=== PATIENT | female | born 1965 | race Two or more races ===

== ENCOUNTER 2023-12-30 13:15 | Inpatient (IN) | payer OTHER ==
[2023-12-30] VITALS (28 sets, daily range): BP systolic 85–143; BP diastolic 27–56; PULSE 92–114; RESP 11–35; TEMP 96.6–97.5; O2SAT 96–100
[~2023-12-30] VITALS: Ht 152.4 cm; Wt 69.3 kg
[2023-12-30] MEDS: ROCURONIUM 10MG/ML 10ML VIAL IV ONE ×2 (13:20→13:45)
[2023-12-30] MEDS: ETOMIDATE (2MG/ML) 20ML VIAL IV ONE ×2 (13:20→13:45)
[2023-12-30] MEDS: PROPOFOL 100 ML IV SCH (13:23)
[2023-12-30] MEDS: PROPOFOL 100 ML IV ONE (13:23)
[2023-12-30] MEDS: fentaNYL Drip 2500mCg/250mlNS 250 ML IV SCH (13:45)
[2023-12-30] MEDS: SODIUM CHLORIDE 0.9% 1,350 ML IV ONE (14:15)
[2023-12-30 14:44] LABS: Urine Bacteria None Seen /hpf (None Seen)
[2023-12-30 14:44] LABS: Hematocrit 54.5 % (36.0-46.0); Hemoglobin 16.6 g/dL (12.2-16.2); Mean Corpuscular Hemoglobin 29.5 pg (28.0-32.0); Mean Corpuscular Hgb Conc. 30.4 g/dL (32.0-36.0); Red Blood Cells 5.62 10^6/uL (4.0-5.20); Red Cell Distribution Width 14.8 % (11.8-14.3); White Blood Cell 25.9 10^3/uL (4.4-10.8)
[2023-12-30 14:54] LABS: INR 1.13 (0.9-1.15); Partial Thromboplastin Time 33.6 SEC (24.5-34.5); Prothrombin Time 11.9 sec (9.3-11.8)
[2023-12-30 14:58] LABS: Basophils % (manual) 0 (0.0-2.0); Blast Cells 0; Eosinophils % (manual) 0 (0-7); Metamyelocytes % 0; Myelocytes % 0; Promyelocytes % 0; Reactive Lymphocytes 0
[2023-12-30] MEDS: VANCOMYCIN 1GM/200ML 200 ML IV ONE ×2 (15:00→20:32)
[2023-12-30] MEDS: PIPERACILLIN-TAZO 4.5GM 100 ML IV ONE (15:00)
[2023-12-30 15:09] LABS: Amphetamine Screen, Urine Neg (NEGATIVE); Barbiturate Scree,Urine Neg (NEGATIVE); Benzodiazephine Screen, Urine Neg (NEGATIVE); Cannabinoid Screen, Urine Neg (NEGATIVE); Cocaine Screen, Urine Neg (NEGATIVE); Opiate Scree,Urine Neg (NEGATIVE); Phencyclidine Screen, Urine Neg (NEGATIVE)
[2023-12-30 15:15] LABS: Urine Blood 1+ /uL (Negative); Urine Clarity Clear (Clear); Urine Color Light-Yellow (Yellow); Urine Hyaline Cast FEW /lpf (0 - 2); Urine Mucus FEW (None Seen); Urine Protein, UAD 2+ (Negative); Urine Specific Gravity 1.018 (1.001-1.035); Urine Urobilinogen Normal (Negative); Urine WBC 3 /hpf (0 - 5); Urine pH 5.5 (5.0-9.0)
[2023-12-30 15:19] LABS: Base Excess -27.9 mmol/L (-2.0-2.0)
[2023-12-30] MEDS: MIDAZOLAM DRIP 50 mg/50mL 50 ML IV SCH (15:25)
[2023-12-30] MEDS ORDERED: LACTULOSE 10g/15ml SOLN 473ML PR ONE (15:45)
[2023-12-30 16:05] LABS: Lactic Acid w/Reflex 4.9 mmol/L (0.4-2.0)
[2023-12-30 16:13] LABS: Band Neutrophils % (manual) 6; Lymphocytes % (manual) 11 (10.0-50.0); Monocytes % (manual) 3 (0-12); Platelet Estimate Increased
[2023-12-30 16:41] LABS: Alanine Aminotransferase 43 U/L (7-40); Albumin 4.3 g/dL (3.2-4.8); Alkaline Phosphatase 156 U/L (46-116); Anion Gap 19.00001 (5-15); Aspartate Aminotransferase 58 U/L (13-40); Bilirubin, Total 0.4 mg/dL (0.2-1.0); Blood Urea Nitrogen 25 mg/dL (9-23); Calcium 9.3 mg/dL (8.7-10.4); Chloride 104 mmol/L (98-107); Potassium 5.1 mmol/L (3.5-5.1); Sodium 133 mmol/L (136-145); Total Protein 6.9 g/dL (5.7-8.2)
[2023-12-30] MEDS: LACTULOSE 20Gm/30ML SOLN NG ONE (16:45)
[2023-12-30 16:49] LABS: Carbon Dioxide < 10 mmol/L (20-30); Glucose 662 mg/dL (74-106)
[2023-12-30] MEDS: LIDOCAINE 1% (LOCAL ANESTH.) PF 5ml SDV ID ONE (17:00)
[2023-12-30 17:13] LABS: Salicylate < 3.0 mg/dL (2.8-20.0)
[2023-12-30] MEDS ORDERED: ONDANSETRON HCL 4 MG/2 ML VIAL IV PRN (17:30)
[2023-12-30] MEDS ORDERED: NITROGLYCERIN 0.4 MG SL TAB SL PRN (17:30)
[2023-12-30] MEDS ORDERED: MORPHINE SULFATE INJ 2 MG/ml SYRG IV PRN (17:30)
[2023-12-30] MEDS ORDERED: SODIUM CHLORIDE 0.9% 1,000 ML IV SCH (17:30)
[2023-12-30] MEDS ORDERED: VANCOMYCIN PER PHARMACY 0 MG IV SCH (18:00)
[2023-12-30] MEDS: SODIUM CHLOR 0.9% PF (SALINE LOCK) 10ML VIAL/SYR IV SCH (18:06)
[2023-12-30] MEDS: NOREPINEPHRINE 8 MG/250ML KIT 250 ML IV ONE (18:22)
[2023-12-30] MEDS: NOREPINEPHRINE 8 MG/250ML KIT 250 ML IV SCH (18:22)
[2023-12-30] MEDS ORDERED: VANCOMYCIN 750mg/150ml 150 ML IV ONE (18:30)
[2023-12-30 19:20] LABS: Magnesium 2.4 mg/dL (1.6-2.6)
[2023-12-30 19:22] LABS: Phosphorus 6.7 mg/dL (2.4-5.1)
[2023-12-30 19:26] LABS: Chloride 106 mmol/L (98-107); Potassium 4.1 mmol/L (3.5-5.1); Sodium 135 mmol/L (136-145)
[2023-12-30 19:27] LABS: Anion Gap 19.00001 (5-15); Calcium 9.4 mg/dL (8.7-10.4)
[2023-12-30 19:32] LABS: BUN/Creatinine Ratio 9.1 (10.0-20.0); Blood Urea Nitrogen 17 mg/dL (9-23)
[2023-12-30 19:42] LABS: Glucose 690 mg/dL (74-106)
[2023-12-30 19:43] LABS: Carbon Dioxide < 10 mmol/L (20-30)
[2023-12-30 19:50] LABS: Lipase 30 U/L (12-53)
[2023-12-30 19:51] LABS: Triglycerides 355 mg/dL (< 150)
[2023-12-30 19:52] LABS: Amylase 58 U/L (30-118); LDL Cholesterol 152 mg/dL (< 100)
[2023-12-30 19:53] LABS: Cholesterol 231 mg/dL (< 200); HDL Cholesterol 32 mg/dL (40-59)
[2023-12-30] MEDS: INSULIN LANTUS (GLARGINE) 1 /0.01ml (100units/ml) SC ONE (20:00)
[2023-12-30] MEDS: ACCU-CHEK COMFORT CURVE STRIP VI SCH (20:00)
[2023-12-30] MEDS: SODIUM BICARB 8.4% 50Meq/50ml SYR Vial IV ONE (20:00)
[2023-12-30] MEDS: INSULIN DRIP 100 UNIT/100ML 100 ML IV SCH ×2 (20:06→23:08)
[2023-12-30] MEDS: SODIUM BICARB 50mEq/50ml Vial 100 ML in D5W 5% 1,000 ML IV ONE (20:59)
[2023-12-30] MEDS: CEFEPIME 2GM/50ML NS 50 ML IV SCH (22:35)
[2023-12-30 23:53] LABS: Chloride 104 mmol/L (98-107); Potassium 4.2 mmol/L (3.5-5.1); Sodium 134 mmol/L (136-145)
[2023-12-30 23:54] LABS: Anion Gap 20.00001 (5-15)
[2023-12-30 23:55] LABS: Calcium 8.7 mg/dL (8.7-10.4)
[2023-12-31] VITALS (105 sets, daily range): BP systolic 85–139; BP diastolic 40–71; PULSE 69–98; RESP 13–30; TEMP 97.9–99.1; O2SAT 95–100
[2023-12-31] LABS: BUN/Creatinine Ratio 11.5 (10.0-20.0); Blood Urea Nitrogen 26 mg/dL (9-23)
[2023-12-31 00:03] LABS: Carbon Dioxide < 10 mmol/L (20-30); Glucose 594 mg/dL (74-106)
[2023-12-31] MEDS: INSULIN DRIP 100 UNIT/100ML 100 ML IV SCH (03:40)
[2023-12-31 04:13] LABS: Basophils # (auto) 0.1 10 ^3/uL (0-0.2); Basophils % (auto) 0.6 % (0.0-2.0); Eosinophils # (auto) 0.1 10 ^3/uL (0-0.8); Eosinophils % (auto) 0.4 % (0.0-7.0); Hematocrit 43.7 % (36.0-46.0); Hemoglobin 14.6 g/dL (12.2-16.2); Lymphocytes # (auto) 2.3 10 ^3/uL (0.4-5.4); Lymphocytes % (auto) 12.5 % (10.0-50.0); Mean Corpuscular Hemoglobin 30.3 pg (28.0-32.0); Mean Corpuscular Hgb Conc. 33.3 g/dL (32.0-36.0); Mean Corpuscular Volume 90.8 fL (80.0-100.0); Monocytes % (auto) 5.5 % (0.0-12.0); Neutrophils # (auto) 14.9 10 ^3/uL (1.6-8.6); Nucleated Red Blood Cells % 0.2 %; Red Blood Cells 4.81 10^6/uL (4.0-5.20); Red Cell Distribution Width 13.7 % (11.8-14.3); White Blood Cell 18.4 10^3/uL (4.4-10.8)
[2023-12-31 04:20] LABS: Base Excess -18.1 mmol/L (-2.0-2.0)
[2023-12-31 04:49] LABS: Albumin 3.7 g/dL (3.2-4.8); Alkaline Phosphatase 115 U/L (46-116); Anion Gap 19.00001 (5-15); Aspartate Aminotransferase 38 U/L (13-40); Bilirubin, Total 0.2 mg/dL (0.2-1.0); Calcium 8.4 mg/dL (8.5-10.1); Chloride 106 mmol/L (98-107); Glucose 384 mg/dL (74-106); Sodium 135 mmol/L (136-145); Total Protein 6.2 g/dL (5.7-8.2)
[2023-12-31 05:02] LABS: Alanine Aminotransferase 32 U/L (7-40); BUN/Creatinine Ratio 9.9 (10.0-20.0); Blood Urea Nitrogen 25 mg/dL (9-23); Potassium 3.6 mmol/L (3.5-5.1)
[2023-12-31 05:05] LABS: Carbon Dioxide < 10 mmol/L (20-30)
[2023-12-31] MEDS: SODIUM BICARB 8.4% 50Meq/50ml SYR Vial IV ONE (05:21)
[2023-12-31 07:31] LABS: Base Excess -12.5 mmol/L (-2.0-2.0)
[2023-12-31] MEDS ORDERED: SODIUM BICARB 50mEq/50ml Vial 150 ML in D5W 5% 1,000 ML IV SCH (09:00)
[2023-12-31] MEDS: ENOXAPARIN SOD 40 MG/0.4 ML SYRINGE SC SCH (10:59)
[2023-12-31] MEDS: PANTOPRAZOLE 40 MG/10 ML VIAL INJ IV SCH (10:59)
[2023-12-31 11:14] LABS: Anion Gap 14 (5-15); Carbon Dioxide 16 mmol/L (20-30); Chloride 105 mmol/L (98-107); Potassium 2.6 mmol/L (3.5-5.1); Sodium 135 mmol/L (136-145)
[2023-12-31 11:15] LABS: Calcium 8.9 mg/dL (8.5-10.1)
[2023-12-31] MEDS: INSULIN LANTUS (GLARGINE) 1 /0.01ml (100units/ml) SC SCH (11:17)
[2023-12-31 11:20] LABS: Blood Urea Nitrogen 29 mg/dL (9-23); Glucose 205 mg/dL (74-106)
[2023-12-31] MEDS: SODIUM BICARB 50mEq/50ml Vial 150 ML in SOD CHL 0.45% 1,000 ML IV SCH (11:21)
[2023-12-31] MEDS: POTASSIUM CHL 20MEQ/100ML 100 ML IV SCH (14:26)
[2023-12-31 14:58] LABS: Chloride 107 mmol/L (98-107); Sodium 135 mmol/L (136-145)
[2023-12-31 14:59] LABS: Anion Gap 16 (5-15); Calcium 8.9 mg/dL (8.7-10.4); Carbon Dioxide 12 mmol/L (20-30)
[2023-12-31 15:04] LABS: Glucose 257 mg/dL (74-106)
[2023-12-31 15:08] LABS: BUN/Creatinine Ratio 7.7 (10.0-20.0); Blood Urea Nitrogen 22 mg/dL (9-23); Potassium 3.7 mmol/L (3.5-5.1)
[2023-12-31] MEDS: SODIUM CHLORIDE 0.9% 1,000 ML IV SCH (16:45)
[2023-12-31 18:37] LABS: Chloride 107 mmol/L (98-107); Potassium 3.2 mmol/L (3.5-5.1); Sodium 137 mmol/L (136-145)
[2023-12-31 18:38] LABS: Anion Gap 17 (5-15); Carbon Dioxide 13 mmol/L (20-30)
[2023-12-31 18:43] LABS: BUN/Creatinine Ratio 7.6 (10.0-20.0); Blood Urea Nitrogen 23 mg/dL (9-23); Glucose 160 mg/dL (74-106)
[2023-12-31 23:40] LABS: Chloride 110 mmol/L (98-107); Sodium 140 mmol/L (136-145)
[2023-12-31 23:43] LABS: Anion Gap 15 (5-15); Calcium 8.8 mg/dL (8.5-10.1); Carbon Dioxide 15 mmol/L (20-30)
[2023-12-31 23:48] LABS: Glucose 125 mg/dL (74-106)
[2024-01-01] VITALS (108 sets, daily range): BP systolic 106–143; BP diastolic 53–76; PULSE 71–91; RESP 15–29; TEMP 97.2–98.4; O2SAT 92–100
[2024-01-01] MEDS: INSULIN DRIP 100 UNIT/100ML 100 ML IV SCH ×2 (00:15→01:45)
[2024-01-01 00:38] LABS: BUN/Creatinine Ratio 9.9 (10.0-20.0); Blood Urea Nitrogen 32 mg/dL (9-23)
[2024-01-01 00:39] LABS: Potassium 3.6 mmol/L (3.5-5.1)
[2024-01-01 02:58] LABS: Chloride 112 mmol/L (98-107); Sodium 138 mmol/L (136-145)
[2024-01-01 02:59] LABS: Anion Gap 13 (5-15); Carbon Dioxide 13 mmol/L (20-30)
[2024-01-01 03:00] LABS: Calcium 8.5 mg/dL (8.7-10.4)
[2024-01-01 03:04] LABS: Blood Urea Nitrogen 38 mg/dL (9-23); Glucose 71 mg/dL (74-106)
[2024-01-01] MEDS: DEXTROSE (50%) 50ML SYRG IV PRN (04:56)
[2024-01-01] MEDS: POTASSIUM CHL 20MEQ/100ML 100 ML IV ONE (04:57)
[2024-01-01 07:06] LABS: Basophils # (auto) 0.2 10 ^3/uL (0-0.2); Eosinophils # (auto) 0 10 ^3/uL (0-0.8); Eosinophils % (auto) 0.3 % (0.0-7.0); Hematocrit 36.7 % (36.0-46.0); Hemoglobin 12.2 g/dL (12.2-16.2); Lymphocytes # (auto) 2.3 10 ^3/uL (0.4-5.4); Lymphocytes % (auto) 13.9 % (10.0-50.0); Mean Corpuscular Hemoglobin 29.4 pg (28.0-32.0); Mean Corpuscular Hgb Conc. 33.3 g/dL (32.0-36.0); Mean Corpuscular Volume 88.3 fL (80.0-100.0); Monocytes # (auto) 1.1 10 ^3/uL (0-1.3); Monocytes % (auto) 6.9 % (0.0-12.0); Neutrophils # (auto) 12.7 10 ^3/uL (1.6-8.6); Neutrophils % (auto) 77.9 % (37.0-80.0); Nucleated Red Blood Cells % 0.1 %; Red Blood Cells 4.16 10^6/uL (4.0-5.20); White Blood Cell 16.3 10^3/uL (4.4-10.8)
[2024-01-01 07:13] LABS: Base Excess -14.5 mmol/L (-2.0-2.0)
[2024-01-01 07:21] LABS: Chloride 112 mmol/L (98-107); Potassium 3.8 mmol/L (3.5-5.1); Sodium 138 mmol/L (136-145)
[2024-01-01 07:22] LABS: Anion Gap 12 (5-15); Calcium 8.2 mg/dL (8.7-10.4); Carbon Dioxide 14 mmol/L (20-30)
[2024-01-01 07:27] LABS: BUN/Creatinine Ratio 11.1 (10.0-20.0); Blood Urea Nitrogen 44 mg/dL (9-23); Glucose 148 mg/dL (74-106)
[2024-01-01 09:17] LABS: Urine Amorphous Crystal FEW /hpf (None Seen); Urine Bacteria FEW /hpf (None Seen); Urine Blood 2+ /uL (Negative); Urine Budding Yeast LOADED /hpf (None Seen); Urine Clarity Turbid (Clear); Urine Protein, UAD 2+ (Negative); Urine Urobilinogen Normal (Negative); Urine WBC 28 /hpf (0 - 5)
[2024-01-01 09:21] LABS: Urine Color STRAW (Yellow)
[2024-01-01 09:28] LABS: Creatinine, Urine 34.69 mg/dL (30.0-125.0)
[2024-01-01] MEDS ORDERED: DEXTROSE (50%) 50ML SYRG IV PRN (10:00)
[2024-01-01] MEDS: INSULIN LANTUS (GLARGINE) 1 /0.01ml (100units/ml) SC ONE (10:40)
[2024-01-01] MEDS: SODIUM BICARB 8.4% 50Meq/50ml SYR Vial IV ONE (10:48)
[2024-01-01] MEDS: InsuLIN REG 1unit/0.01ml Soln (100units/ml) SC SCH (12:00)
[2024-01-01 12:13] LABS: Chloride 112 mmol/L (98-107); Potassium 3.4 mmol/L (3.5-5.1); Sodium 141 mmol/L (136-145)
[2024-01-01] MEDS: ALBUTEROL SULF 2.5 MG/0.5ML(0.5%) NEB SOLN NEB SCH (12:13)
[2024-01-01 12:14] LABS: Anion Gap 12 (5-15); Calcium 8.2 mg/dL (8.5-10.1); Carbon Dioxide 17 mmol/L (20-30)
[2024-01-01 12:19] LABS: BUN/Creatinine Ratio 10.2 (10.0-20.0); Blood Urea Nitrogen 39 mg/dL (9-23); Glucose 92 mg/dL (74-106)
[2024-01-01] MEDS: ACCU-CHEK COMFORT CURVE STRIP VI SCH (12:24)
[2024-01-01] MEDS ORDERED: ALBUTEROL SULF 2.5 MG/0.5ML(0.5%) NEB SOLN NEB SCH (14:00)
[2024-01-01 14:45] LABS: Chloride 112 mmol/L (98-107); Potassium 3.1 mmol/L (3.5-5.1); Sodium 142 mmol/L (136-145)
[2024-01-01 14:46] LABS: Anion Gap 14 (5-15); Calcium 8.5 mg/dL (8.5-10.1); Carbon Dioxide 16 mmol/L (20-30)
[2024-01-01 14:51] LABS: BUN/Creatinine Ratio 10.5 (10.0-20.0); Blood Urea Nitrogen 41 mg/dL (9-23); Glucose 112 mg/dL (74-106)
[2024-01-01] MEDS: BUMETANIDE 2.5mg/10ml (0.25 mg/ml) INJ IV ONE (16:35)
[2024-01-01 18:53] LABS: Chloride 114 mmol/L (98-107); Sodium 140 mmol/L (136-145)
[2024-01-01 18:54] LABS: Anion Gap 15 (5-15); Calcium 7.9 mg/dL (8.5-10.1); Carbon Dioxide 11 mmol/L (20-30)
[2024-01-01 18:59] LABS: Glucose 154 mg/dL (74-106)
[2024-01-01 19:05] LABS: BUN/Creatinine Ratio 7.8 (10.0-20.0); Blood Urea Nitrogen 33 mg/dL (9-23); Potassium 3.8 mmol/L (3.5-5.1)
[2024-01-01 22:32] LABS: Chloride 115 mmol/L (98-107); Potassium 2.9 mmol/L (3.5-5.1); Sodium 142 mmol/L (136-145)
[2024-01-01 22:33] LABS: Anion Gap 13 (5-15); Calcium 7.7 mg/dL (8.5-10.1); Carbon Dioxide 14 mmol/L (20-30)
[2024-01-01 22:38] LABS: BUN/Creatinine Ratio 10.4 (10.0-20.0); Glucose 152 mg/dL (74-106)
[2024-01-01 22:40] LABS: Blood Urea Nitrogen 44 mg/dL (9-23)
[2024-01-02] VITALS (113 sets, daily range): BP systolic 96–139; BP diastolic 49–73; PULSE 66–94; RESP 12–30; TEMP 96.3–99; O2SAT 97–100
[2024-01-02] MEDS: POTASSIUM CHL 20MEQ/100ML 100 ML IV ONE ×3 (00:02→10:36)
[2024-01-02 03:31] LABS: Basophils # (auto) 0.1 10 ^3/uL (0-0.2); Basophils % (auto) 0.6 % (0.0-2.0); Eosinophils # (auto) 0 10 ^3/uL (0-0.8); Eosinophils % (auto) 0.4 % (0.0-7.0); Hematocrit 30.8 % (36.0-46.0); Hemoglobin 10.8 g/dL (12.2-16.2); Lymphocytes # (auto) 1.5 10 ^3/uL (0.4-5.4); Lymphocytes % (auto) 16.3 % (10.0-50.0); Mean Corpuscular Hemoglobin 30.5 pg (28.0-32.0); Mean Corpuscular Volume 87.3 fL (80.0-100.0); Monocytes # (auto) 0.7 10 ^3/uL (0-1.3); Monocytes % (auto) 7.5 % (0.0-12.0); Neutrophils # (auto) 7.1 10 ^3/uL (1.6-8.6); Neutrophils % (auto) 75.2 % (37.0-80.0); Red Blood Cells 3.53 10^6/uL (4.0-5.20); Red Cell Distribution Width 14.1 % (11.8-14.3); White Blood Cell 9.4 10^3/uL (4.4-10.8)
[2024-01-02 03:58] LABS: Chloride 114 mmol/L (98-107); Potassium 3.1 mmol/L (3.5-5.1); Sodium 140 mmol/L (136-145)
[2024-01-02 03:59] LABS: Anion Gap 12 (5-15); Calcium 7.8 mg/dL (8.7-10.4); Carbon Dioxide 14 mmol/L (20-30)
[2024-01-02 04:04] LABS: BUN/Creatinine Ratio 9.2 (10.0-20.0); Blood Urea Nitrogen 43 mg/dL (9-23); Glucose 176 mg/dL (74-106)
[2024-01-02 07:05] LABS: Base Excess -14.7 mmol/L (-2.0-2.0)
[2024-01-02] MEDS: FUROSEMIDE 40 MG/4 ML VIAL IV ONE (07:28)
[2024-01-02 10:15] LABS: Hepatitis B Core Total AB Negative (Negative)
[2024-01-02] MEDS: SODIUM CHLORIDE 0.9% 1,000 ML IV SCH (10:20)
[2024-01-02] MEDS: SODIUM BICARB 8.4% 50Meq/50ml SYR Vial IV ONE (10:36)
[2024-01-02 10:46] LABS: Hepatitis A Total Antibody Negative (Negative); Hepatitis B Surface Antibody Negative (Negative); Hepatitis B Surface Antigen Negative (Negative); Hepatitis C Antibody Negative (Negative)
[2024-01-02 17:27] LABS: Chloride 118 mmol/L (98-107); Potassium 3.1 mmol/L (3.5-5.1)
[2024-01-02 17:28] LABS: Anion Gap 13 (5-15); Calcium 7.7 mg/dL (8.5-10.1); Carbon Dioxide 15 mmol/L (20-30)
[2024-01-02 17:33] LABS: BUN/Creatinine Ratio 8.9 (10.0-20.0); Blood Urea Nitrogen 44 mg/dL (9-23); Glucose 182 mg/dL (74-106)
[2024-01-02 17:57] LABS: Sodium 146 mmol/L (136-145)
[2024-01-02] MEDS: MAGNESIUM SULFATE 1GM/100ML 100 ML IV SCH (18:16)
[2024-01-03] VITALS (107 sets, daily range): BP systolic 120–152; BP diastolic 52–77; PULSE 70–103; RESP 10–34; TEMP 97.6–98.6; O2SAT 94–100
[2024-01-03 04:08] LABS: Basophils # (auto) 0 10 ^3/uL (0-0.2); Basophils % (auto) 0.5 % (0.0-2.0); Eosinophils # (auto) 0.1 10 ^3/uL (0-0.8); Eosinophils % (auto) 1.5 % (0.0-7.0); Hematocrit 27.9 % (36.0-46.0); Hemoglobin 9.4 g/dL (12.2-16.2); Lymphocytes # (auto) 0.8 10 ^3/uL (0.4-5.4); Mean Corpuscular Hemoglobin 29.8 pg (28.0-32.0); Mean Corpuscular Hgb Conc. 33.8 g/dL (32.0-36.0); Mean Corpuscular Volume 88.3 fL (80.0-100.0); Monocytes # (auto) 0.5 10 ^3/uL (0-1.3); Monocytes % (auto) 7.6 % (0.0-12.0); Neutrophils # (auto) 5.5 10 ^3/uL (1.6-8.6); Neutrophils % (auto) 78.4 % (37.0-80.0); Red Blood Cells 3.16 10^6/uL (4.0-5.20)
[2024-01-03 04:20] LABS: Chloride 119 mmol/L (98-107); Potassium 2.7 mmol/L (3.5-5.1); Sodium 146 mmol/L (136-145)
[2024-01-03 04:21] LABS: Anion Gap 15 (5-15); Carbon Dioxide 12 mmol/L (20-30)
[2024-01-03 04:22] LABS: Calcium 7.1 mg/dL (8.7-10.4)
[2024-01-03 04:26] LABS: BUN/Creatinine Ratio 8.8 (10.0-20.0); Blood Urea Nitrogen 43 mg/dL (9-23); Glucose 174 mg/dL (74-106)
[2024-01-03] MEDS ORDERED: POTASSIUM CHL 20MEQ/100ML 100 ML IV ONE (05:30)
[2024-01-03] MEDS ORDERED: POTASSIUM CHLORIDE 40 MEQ, LIDOCAINE 1% (LOCAL ANESTH.) 4 ML in SODIUM CHL 0.9% 250 ML IV ONE (05:30)
[2024-01-03] MEDS: POTASSIUM CHL 20MEQ/100ML 100 ML IV SCH ×2 (05:51→09:15)
[2024-01-03 07:29] LABS: Base Excess -13.1 mmol/L (-2.0-2.0)
[2024-01-03] MEDS: SODIUM BICARB 8.4% 50Meq/50ml SYR Vial IV ONE (08:55)
[2024-01-03] MEDS: MAGNESIUM SULFATE 1GM/100ML 100 ML IV SCH (10:00)
[2024-01-03] MEDS: SOD CHL 0.45% 1,000 ML IV SCH (13:23)
[2024-01-03] MEDS: FUROSEMIDE 100 MG/10ML VIAL IV ONE (13:23)
[2024-01-03] MEDS: FUROSEMIDE INJECTION 10 ML ONE (13:24)
[2024-01-03] MEDS: MIDAZOLAM HCL 5 MG/ML-1ML VIAL ONE (15:16)
[2024-01-03] MEDS: MIDAZOLAM HCL 5 MG/ML-1ML VIAL IV ONE (16:00)
[2024-01-03 16:31] LABS: Chloride 115 mmol/L (98-107); Potassium 3.2 mmol/L (3.5-5.1); Sodium 141 mmol/L (136-145)
[2024-01-03 16:32] LABS: Anion Gap 14 (5-15); Calcium 7.4 mg/dL (8.7-10.4); Carbon Dioxide 12 mmol/L (20-30)
[2024-01-03 16:37] LABS: BUN/Creatinine Ratio 8.3 (10.0-20.0); Blood Urea Nitrogen 43 mg/dL (9-23); Glucose 176 mg/dL (74-106)
[2024-01-03] MEDS: POTASSIUM CHL 20MEQ/100ML 100 ML IV ONE (17:08)
[2024-01-04] VITALS (105 sets, daily range): BP systolic 115–157; BP diastolic 60–82; PULSE 66–89; RESP 8–31; TEMP 98–98.3; O2SAT 96–100
[2024-01-04 04:44] LABS: Basophils # (auto) 0 10 ^3/uL (0-0.2); Basophils % (auto) 0.6 % (0.0-2.0); Eosinophils # (auto) 0.2 10 ^3/uL (0-0.8); Eosinophils % (auto) 2.7 % (0.0-7.0); Hematocrit 30.6 % (36.0-46.0); Hemoglobin 10.4 g/dL (12.2-16.2); Lymphocytes # (auto) 0.9 10 ^3/uL (0.4-5.4); Lymphocytes % (auto) 11.3 % (10.0-50.0); Mean Corpuscular Hemoglobin 30.4 pg (28.0-32.0); Mean Corpuscular Hgb Conc. 34.1 g/dL (32.0-36.0); Monocytes # (auto) 0.7 10 ^3/uL (0-1.3); Monocytes % (auto) 8.7 % (0.0-12.0); Neutrophils # (auto) 6.5 10 ^3/uL (1.6-8.6); Neutrophils % (auto) 76.7 % (37.0-80.0); Nucleated Red Blood Cells % 0.1 %; Red Blood Cells 3.44 10^6/uL (4.0-5.20); Red Cell Distribution Width 14.4 % (11.8-14.3); White Blood Cell 8.4 10^3/uL (4.4-10.8)
[2024-01-04 04:47] LABS: Chloride 118 mmol/L (98-107); Potassium 3.8 mmol/L (3.5-5.1); Sodium 144 mmol/L (136-145)
[2024-01-04 04:48] LABS: Anion Gap 14 (5-15); Calcium 8.1 mg/dL (8.5-10.1); Carbon Dioxide 12 mmol/L (20-30)
[2024-01-04 04:53] LABS: BUN/Creatinine Ratio 9.2 (10.0-20.0); Glucose 176 mg/dL (74-106)
[2024-01-04 04:55] LABS: % Iron Saturation 27.4 % (15-50)
[2024-01-04 04:58] LABS: Blood Urea Nitrogen 53 mg/dL (9-23)
[2024-01-04 06:56] LABS: Base Excess -12.6 mmol/L (-2.0-2.0)
[2024-01-04] MEDS: SODIUM CHL 0.9% 1000 ML BAG XX ONE (07:00)
[2024-01-04] MEDS: EPOETIN ALFA-EPBX 10,000 UNIT/1ML VIAL SC ONE (21:35)
[2024-01-05] VITALS (120 sets, daily range): BP systolic 83–157; BP diastolic 44–97; PULSE 43–91; RESP 8–36; TEMP 97.3–98.9; O2SAT 60–100
[2024-01-05 04:08] LABS: Basophils # (auto) 0 10 ^3/uL (0-0.2); Basophils % (auto) 0.4 % (0.0-2.0); Eosinophils # (auto) 0.4 10 ^3/uL (0-0.8); Eosinophils % (auto) 3.3 % (0.0-7.0); Hematocrit 30.9 % (36.0-46.0); Hemoglobin 10.4 g/dL (12.2-16.2); Lymphocytes # (auto) 1.3 10 ^3/uL (0.4-5.4); Lymphocytes % (auto) 12.2 % (10.0-50.0); Mean Corpuscular Hemoglobin 29.7 pg (28.0-32.0); Mean Corpuscular Hgb Conc. 33.7 g/dL (32.0-36.0); Monocytes # (auto) 1.3 10 ^3/uL (0-1.3); Neutrophils # (auto) 7.9 10 ^3/uL (1.6-8.6); Neutrophils % (auto) 72.1 % (37.0-80.0); Red Blood Cells 3.52 10^6/uL (4.0-5.20); Red Cell Distribution Width 14.4 % (11.8-14.3)
[2024-01-05 04:24] LABS: Anion Gap 15 (5-15); Carbon Dioxide 15 mmol/L (20-30); Chloride 113 mmol/L (98-107); Potassium 3.5 mmol/L (3.5-5.1); Sodium 143 mmol/L (136-145)
[2024-01-05 04:25] LABS: Calcium 8.5 mg/dL (8.7-10.4)
[2024-01-05 04:30] LABS: BUN/Creatinine Ratio 9.1 (10.0-20.0); Blood Urea Nitrogen 48 mg/dL (9-23); Glucose 157 mg/dL (74-106)
[2024-01-05] MEDS: SODIUM CHL 0.9% 1000 ML BAG XX ONE (07:00)
[2024-01-05 07:29] LABS: Base Excess -9.4 mmol/L (-2.0-2.0)
[2024-01-05] MEDS: methylPREDNISolone SOD SUCC 125 MG/2 ML VL IV ONE (09:10)
[2024-01-05 09:38] LABS: Base Excess -3.3 mmol/L (-2.0-2.0)
[2024-01-05 09:48] LABS: Hepatitis B Surface Antigen Negative (Negative)
[2024-01-05] MEDS: methylPREDNISolone SOD SUCC 40 MG/ML VL IV SCH (10:00)
[2024-01-05 10:10] LABS: Hepatitis A Ab IgM Negative; Hepatitis B Core IgM Negative
[2024-01-05 10:11] LABS: Hepatitis C Antibody Negative (Negative)
[2024-01-05] MEDS: ALBUTEROL SULF 2.5 MG/0.5ML(0.5%) NEB SOLN HHN SCH (13:27)
[2024-01-05] MEDS: ALBUMIN 25% 100 ML IV ONE (15:54)
[2024-01-05] MEDS: FUROSEMIDE 40 MG/4 ML VIAL IV ONE (17:26)
[2024-01-05 18:34] LABS: Albumin 3.6 g/dL (3.2-4.8); Alkaline Phosphatase 104 U/L (46-116); Anion Gap 20 (5-15); Aspartate Aminotransferase 12 U/L (13-40); Calcium 8.8 mg/dL (8.7-10.4); Carbon Dioxide 13 mmol/L (20-30); Chloride 105 mmol/L (98-107); Glucose 241 mg/dL (74-106); Magnesium 2.4 mg/dL (1.6-2.6); Potassium 4.3 mmol/L (3.5-5.1); Sodium 138 mmol/L (136-145)
[2024-01-05 18:35] LABS: Bilirubin, Total 0.2 mg/dL (0.2-1.0); Total Protein 6.2 g/dL (5.7-8.2)
[2024-01-05 18:40] LABS: Alanine Aminotransferase 9 U/L (7-40); Blood Urea Nitrogen 35 mg/dL (9-23)
[2024-01-06] VITALS (114 sets, daily range): BP systolic 84–159; BP diastolic 42–90; PULSE 64–99; RESP 8–31; TEMP 97.6–98.2; O2SAT 87–100
[2024-01-06 04:41] LABS: Chloride 106 mmol/L (98-107); Potassium 4.3 mmol/L (3.5-5.1); Sodium 139 mmol/L (136-145)
[2024-01-06 04:42] LABS: Anion Gap 13 (5-15); Calcium 8.8 mg/dL (8.7-10.4); Carbon Dioxide 20 mmol/L (20-30)
[2024-01-06 04:47] LABS: BUN/Creatinine Ratio 9.2 (10.0-20.0); Blood Urea Nitrogen 41 mg/dL (9-23); Glucose 182 mg/dL (74-106)
[2024-01-06] MEDS: SODIUM CHL 0.9% 1000 ML BAG XX ONE (06:45)
[2024-01-06 09:21] LABS: Base Excess -10.9 mmol/L (-2.0-2.0)
[2024-01-06] MEDS: ALBUMIN 25% 200 ML IV ONE (11:32)
[2024-01-06] MEDS: PROPOFOL 100 ML IV SCH (16:09)
[2024-01-06 17:13] LABS: INR 1.03 (0.9-1.15); Partial Thromboplastin Time 25.4 SEC (24.5-34.5); Prothrombin Time 10.9 sec (9.3-11.8)
[2024-01-06] MEDS: LIDOCAINE 1% (LOCAL ANESTH.) PF 5ml SDV ID ONE (18:30)
[2024-01-06] MEDS: EPOETIN ALFA-EPBX 4,000 UNIT/ML VIAL SC ONE (20:47)
[2024-01-06] MEDS: VANCOMYCIN 500 MG in D5W 5% 100 ML IV ONE (20:47)
[2024-01-06] MEDS: SODIUM CHLOR 0.9% PF (SALINE LOCK) 10ML VIAL/SYR IV SCH (22:21)
[2024-01-07] VITALS (102 sets, daily range): BP systolic 90–156; BP diastolic 41–75; PULSE 61–99; RESP 10–32; TEMP 97.9–98.8; O2SAT 93–100
[2024-01-07 05:31] LABS: Hematocrit 27.8 % (36.0-46.0); Hemoglobin 9.3 g/dL (12.2-16.2); Mean Corpuscular Hemoglobin 29.7 pg (28.0-32.0); Mean Corpuscular Hgb Conc. 33.5 g/dL (32.0-36.0); Mean Corpuscular Volume 88.9 fL (80.0-100.0); Red Blood Cells 3.13 10^6/uL (4.0-5.20); Red Cell Distribution Width 13.9 % (11.8-14.3)
[2024-01-07 05:36] LABS: Basophils % (manual) 0 (0.0-2.0); Blast Cells 0; Eosinophils % (manual) 0 (0-7); Metamyelocytes % 0; Myelocytes % 0; Promyelocytes % 0; Reactive Lymphocytes 0
[2024-01-07 05:43] LABS: Chloride 99 mmol/L (98-107); Potassium 3.9 mmol/L (3.5-5.1); Sodium 136 mmol/L (136-145)
[2024-01-07 05:44] LABS: Anion Gap 15 (5-15); Carbon Dioxide 22 mmol/L (20-30)
[2024-01-07 05:49] LABS: Glucose 203 mg/dL (74-106)
[2024-01-07 05:50] LABS: BUN/Creatinine Ratio 9.4 (10.0-20.0); Blood Urea Nitrogen 37 mg/dL (9-23); Magnesium 2.3 mg/dL (1.6-2.6)
[2024-01-07 05:53] LABS: Band Neutrophils % (manual) 3; Lymphocytes % (manual) 21 (10.0-50.0); Monocytes % (manual) 8 (0-12); Platelet Estimate Adequate
[2024-01-07] MEDS: SODIUM CHL 0.9% 1000 ML BAG XX ONE (07:00)
[2024-01-07 18:08] LABS: Gastric Occult Blood Positive (Negative); Gastric Occult Blood pH 4
[2024-01-07 19:06] LABS: Hematocrit 28.7 % (36.0-46.0); Hemoglobin 9.3 g/dL (12.2-16.2)
[2024-01-07] MEDS: EPOETIN ALFA-EPBX 4,000 UNIT/ML VIAL SC ONE (21:17)
[2024-01-07] MEDS: PANTOPRAZOLE 40 MG/10 ML VIAL INJ IV SCH (22:23)
[2024-01-08] VITALS (105 sets, daily range): BP systolic 85–146; BP diastolic 41–81; PULSE 52–104; RESP 12–35; TEMP 98.3–98.9; O2SAT 94–100
[2024-01-08] MEDS: SODIUM CHL 0.9% 1000 ML BAG XX ONE (07:00)
[2024-01-08 07:04] LABS: Chloride 96 mmol/L (98-107); Potassium 3.7 mmol/L (3.5-5.1); Sodium 135 mmol/L (136-145)
[2024-01-08 07:05] LABS: Anion Gap 18 (5-15); Calcium 9.2 mg/dL (8.7-10.4); Carbon Dioxide 21 mmol/L (20-30)
[2024-01-08 07:10] LABS: BUN/Creatinine Ratio 9.6 (10.0-20.0); Blood Urea Nitrogen 37 mg/dL (9-23)
[2024-01-08 07:42] LABS: Glucose 225 mg/dL (74-106)
[2024-01-08 10:07] LABS: Hematocrit 28.6 % (36.0-46.0); Hemoglobin 9.4 g/dL (12.2-16.2); Mean Corpuscular Hemoglobin 29.6 pg (28.0-32.0); Mean Corpuscular Hgb Conc. 32.9 g/dL (32.0-36.0); Mean Corpuscular Volume 90.1 fL (80.0-100.0); Red Blood Cells 3.18 10^6/uL (4.0-5.20); Red Cell Distribution Width 13.8 % (11.8-14.3); White Blood Cell 13.2 10^3/uL (4.4-10.8)
[2024-01-08 10:10] LABS: Basophils % (manual) 0 (0.0-2.0); Blast Cells 0; Eosinophils % (manual) 0 (0-7); Metamyelocytes % 0; Myelocytes % 0; Promyelocytes % 0; Reactive Lymphocytes 0
[2024-01-08 10:29] LABS: Band Neutrophils % (manual) 3; Lymphocytes % (manual) 9 (10.0-50.0); Monocytes % (manual) 8 (0-12); Platelet Estimate Adequate; RBC Morphology Normal
[2024-01-08 10:56] LABS: Erythrocyte Sedimentation Rate 93 mm/hr (0-20)
[2024-01-08] MEDS: ALBUMIN 25% 100 ML IV ONE (12:00)
[2024-01-09] VITALS (105 sets, daily range): BP systolic 107–154; BP diastolic 54–84; PULSE 63–97; RESP 12–28; TEMP 98.3–99; O2SAT 96–100
[2024-01-09 04:06] LABS: Hematocrit 31.6 % (36.0-46.0); Hemoglobin 10.7 g/dL (12.2-16.2); Mean Corpuscular Hemoglobin 30.9 pg (28.0-32.0); Mean Corpuscular Hgb Conc. 33.8 g/dL (32.0-36.0); Mean Corpuscular Volume 91.4 fL (80.0-100.0); Red Blood Cells 3.46 10^6/uL (4.0-5.20); White Blood Cell 15.3 10^3/uL (4.4-10.8)
[2024-01-09 04:10] LABS: Basophils % (manual) 0 (0.0-2.0); Blast Cells 0; Eosinophils % (manual) 0 (0-7); Metamyelocytes % 0; Myelocytes % 0; Promyelocytes % 0; Reactive Lymphocytes 0
[2024-01-09 04:14] LABS: Alanine Aminotransferase 11 U/L (7-40); Alkaline Phosphatase 93 U/L (46-116); Anion Gap 17 (5-15); BUN/Creatinine Ratio 7.8 (10.0-20.0); Blood Urea Nitrogen 29 mg/dL (9-23); Calcium 9.6 mg/dL (8.5-10.1); Carbon Dioxide 20 mmol/L (20-30); Chloride 97 mmol/L (98-107); Glucose 245 mg/dL (74-106); Potassium 3.8 mmol/L (3.5-5.1); Sodium 134 mmol/L (136-145)
[2024-01-09 04:15] LABS: Albumin 4.2 g/dL (3.2-4.8); Aspartate Aminotransferase 11 U/L (13-40); Bilirubin, Total 0.3 mg/dL (0.2-1.0)
[2024-01-09 04:55] LABS: Band Neutrophils % (manual) 6
[2024-01-09 04:56] LABS: Lymphocytes % (manual) 15 (10.0-50.0); Monocytes % (manual) 9 (0-12); Platelet Estimate Adequate
[2024-01-09 07:42] LABS: Base Excess -3.8 mmol/L (-2.0-2.0)
[2024-01-09] MEDS ORDERED: CLINIMIX PER PHARMACY 0 ML IV SCH (15:30)
[2024-01-09] MEDS ORDERED: DEXTROSE (50%) 50ML SYRG IV SCH (15:45)
[2024-01-09] MEDS: ACCU-CHEK COMFORT CURVE STRIP VI SCH (18:30)
[2024-01-09] MEDS: InsuLIN REG 1unit/0.01ml Soln (100units/ml) SC SCH (18:32)
[2024-01-09] MEDS: AMINO ACID INFUSION IN D5W 2,000 ML IV NR (19:58)
[2024-01-09] MEDS: CEFEPIME 2GM/50ML NS 50 ML IV SCH (22:16)
[2024-01-10] VITALS (69 sets, daily range): BP systolic 96–152; BP diastolic 52–81; PULSE 74–109; RESP 10–33; TEMP 98.1–99; O2SAT 95–100
[2024-01-10 04:00] LABS: Hematocrit 31.5 % (36.0-46.0); Hemoglobin 10.5 g/dL (12.2-16.2); Mean Corpuscular Hemoglobin 29.7 pg (28.0-32.0); Mean Corpuscular Hgb Conc. 33.2 g/dL (32.0-36.0); Mean Corpuscular Volume 89.4 fL (80.0-100.0); Red Blood Cells 3.52 10^6/uL (4.0-5.20); Red Cell Distribution Width 13.6 % (11.8-14.3); White Blood Cell 17.2 10^3/uL (4.4-10.8)
[2024-01-10 04:13] LABS: Band Neutrophils % (manual) 0; Basophils % (manual) 0 (0.0-2.0); Blast Cells 0; Eosinophils % (manual) 0 (0-7); Metamyelocytes % 0; Myelocytes % 0; Promyelocytes % 0; Reactive Lymphocytes 0
[2024-01-10 04:28] LABS: Alanine Aminotransferase 10 U/L (7-40); Albumin 4.1 g/dL (3.2-4.8); Alkaline Phosphatase 86 U/L (46-116); Anion Gap 21 (5-15); Aspartate Aminotransferase 9 U/L (13-40); BUN/Creatinine Ratio 8.6 (10.0-20.0); Bilirubin, Total 0.3 mg/dL (0.2-1.0); Calcium 9.6 mg/dL (8.7-10.4); Carbon Dioxide 18 mmol/L (20-30); Chloride 96 mmol/L (98-107); Glucose 212 mg/dL (74-106); Magnesium 2.4 mg/dL (1.6-2.6); Phosphorus 7.1 mg/dL (2.4-5.1); Potassium 3.8 mmol/L (3.5-5.1); Sodium 135 mmol/L (136-145); Total Protein 7.2 g/dL (5.7-8.2)
[2024-01-10 04:32] LABS: Blood Urea Nitrogen 47 mg/dL (9-23)
[2024-01-10 04:57] LABS: Lymphocytes % (manual) 6 (10.0-50.0); Monocytes % (manual) 6 (0-12); Platelet Estimate Adequate
[2024-01-10 06:15] LABS: Base Excess -7.3 mmol/L (-2.0-2.0)
[2024-01-10 19:26] LABS: Hematocrit 33.6 % (36.0-46.0); Hemoglobin 10.9 g/dL (12.2-16.2); Mean Corpuscular Hemoglobin 30.1 pg (28.0-32.0); Mean Corpuscular Hgb Conc. 32.4 g/dL (32.0-36.0); Mean Corpuscular Volume 92.9 fL (80.0-100.0); Red Blood Cells 3.61 10^6/uL (4.0-5.20)
[2024-01-10 19:30] LABS: Basophils % (manual) 0 (0.0-2.0); Blast Cells 0; Eosinophils % (manual) 0 (0-7); Metamyelocytes % 0; Myelocytes % 0; Promyelocytes % 0; Reactive Lymphocytes 0
[2024-01-10 19:59] LABS: INR 1.05 (0.9-1.15); Partial Thromboplastin Time 24.1 SEC (24.5-34.5); Prothrombin Time 11.1 sec (9.3-11.8)
[2024-01-10] MEDS: VANCOMYCIN 500 MG in D5W 5% 100 ML IV ONE (20:38)
[2024-01-10] MEDS: AMINO ACID INFUSION IN D5W 2,000 ML IV NR (20:38)
[2024-01-10 20:45] LABS: Anisocytosis Slight; Band Neutrophils % (manual) 6; Lymphocytes % (manual) 3 (10.0-50.0); Monocytes % (manual) 5 (0-12); Platelet Estimate Adequate
[2024-01-11] VITALS (85 sets, daily range): BP systolic 79–134; BP diastolic 42–92; PULSE 81–120; RESP 10–26; TEMP 97.6–98.5; O2SAT 95–100
[2024-01-11 04:24] LABS: Basophils # (auto) 0 10 ^3/uL (0-0.2); Basophils % (auto) 0.1 % (0.0-2.0); Eosinophils # (auto) 0 10 ^3/uL (0-0.8); Hematocrit 32.7 % (36.0-46.0); Hemoglobin 10.8 g/dL (12.2-16.2); Lymphocytes # (auto) 1.3 10 ^3/uL (0.4-5.4); Lymphocytes % (auto) 6.2 % (10.0-50.0); Mean Corpuscular Hemoglobin 29.8 pg (28.0-32.0); Mean Corpuscular Hgb Conc. 32.9 g/dL (32.0-36.0); Mean Corpuscular Volume 90.5 fL (80.0-100.0); Monocytes # (auto) 0.8 10 ^3/uL (0-1.3); Monocytes % (auto) 3.6 % (0.0-12.0); Neutrophils # (auto) 19.6 10 ^3/uL (1.6-8.6); Neutrophils % (auto) 90.1 % (37.0-80.0); Nucleated Red Blood Cells % 0.3 %; Red Blood Cells 3.61 10^6/uL (4.0-5.20); Red Cell Distribution Width 13.7 % (11.8-14.3); White Blood Cell 21.8 10^3/uL (4.4-10.8)
[2024-01-11 04:29] LABS: Alanine Aminotransferase 13 U/L (7-40); Albumin 4.6 g/dL (3.2-4.8); Alkaline Phosphatase 93 U/L (46-116); Anion Gap 22 (5-15); Aspartate Aminotransferase 11 U/L (13-40); BUN/Creatinine Ratio 13.4 (10.0-20.0); Calcium 10.1 mg/dL (8.7-10.4); Carbon Dioxide 16 mmol/L (20-30); Chloride 93 mmol/L (98-107); Glucose 390 mg/dL (74-106); Magnesium 2.2 mg/dL (1.6-2.6); Potassium 3.9 mmol/L (3.5-5.1); Sodium 131 mmol/L (136-145)
[2024-01-11 04:30] LABS: Bilirubin, Total 0.3 mg/dL (0.2-1.0); Phosphorus 6.3 mg/dL (2.4-5.1); Total Protein 7.8 g/dL (5.7-8.2)
[2024-01-11 04:32] LABS: Blood Urea Nitrogen 76 mg/dL (9-23)
[2024-01-11 06:48] LABS: Base Excess -7.3 mmol/L (-2.0-2.0)
[2024-01-11] MEDS ORDERED: TPN PER PHARMACY 0 ML IV SCH (10:30)
[2024-01-11] MEDS: INSULIN LANTUS (GLARGINE) 1 /0.01ml (100units/ml) SC SCH (12:00)
[2024-01-11] MEDS: SODIUM CHL 0.9% 1000 ML BAG XX ONE (13:45)
[2024-01-11] MEDS: TPN PER PHARMACY IV NR (20:24)
[2024-01-12] VITALS (111 sets, daily range): BP systolic 91–138; BP diastolic 50–79; PULSE 76–101; RESP 11–23; TEMP 98.5–98.8; O2SAT 97–100
[2024-01-12 04:10] LABS: Hemoglobin 11.1 g/dL (12.2-16.2); Mean Corpuscular Volume 90.5 fL (80.0-100.0)
[2024-01-12 04:16] LABS: Hematocrit 33.4 % (36.0-46.0); Mean Corpuscular Hgb Conc. 33.1 g/dL (32.0-36.0); Red Blood Cells 3.69 10^6/uL (4.0-5.20); Red Cell Distribution Width 13.6 % (11.8-14.3)
[2024-01-12 04:24] LABS: Alanine Aminotransferase 15 U/L (7-40); Albumin 4.7 g/dL (3.2-4.8); Alkaline Phosphatase 96 U/L (46-116); Anion Gap 18 (5-15); Aspartate Aminotransferase 15 U/L (13-40); BUN/Creatinine Ratio 12.7 (10.0-20.0); Calcium 10.3 mg/dL (8.7-10.4); Carbon Dioxide 20 mmol/L (20-30); Chloride 94 mmol/L (98-107); Glucose 334 mg/dL (74-106); Magnesium 2.1 mg/dL (1.6-2.6); Potassium 3.1 mmol/L (3.5-5.1); Sodium 132 mmol/L (136-145)
[2024-01-12 04:25] LABS: Bilirubin, Total 0.4 mg/dL (0.2-1.0); Total Protein 7.9 g/dL (5.7-8.2)
[2024-01-12 04:42] LABS: Blood Urea Nitrogen 62 mg/dL (9-23)
[2024-01-12 04:48] LABS: White Blood Cell 34.2 10^3/uL (4.4-10.8)
[2024-01-12 05:09] LABS: Band Neutrophils % (manual) 0; Basophils % (manual) 0 (0.0-2.0); Blast Cells 0; Eosinophils % (manual) 0 (0-7); Metamyelocytes % 0; Myelocytes % 0; Promyelocytes % 0; Reactive Lymphocytes 0
[2024-01-12] MEDS: POTASSIUM CHL 20MEQ/100ML 100 ML IV ONE (06:10)
[2024-01-12 06:32] LABS: Lymphocytes % (manual) 13 (10.0-50.0); Monocytes % (manual) 4 (0-12); Platelet Estimate Adequate; RBC Morphology Normal
[2024-01-12 07:44] LABS: Base Excess -5.2 mmol/L (-2.0-2.0)
[2024-01-12] MEDS ORDERED: MORPHINE SULFATE INJ 2 MG/ml SYRG IV PRN (10:30)
[2024-01-12] MEDS ORDERED: VANCOMYCIN PER PHARMACY 0 MG IV SCH (14:15)
[2024-01-12] MEDS: MEROPENEM 1GM IVPB 50 ML IV ONE (14:35)
[2024-01-12 20:24] LABS: Chloride 91 mmol/L (98-107)
[2024-01-12 20:25] LABS: Anion Gap 15 (5-15); Calcium 9.8 mg/dL (8.5-10.1); Carbon Dioxide 21 mmol/L (20-30)
[2024-01-12 20:30] LABS: BUN/Creatinine Ratio 16.9 (10.0-20.0)
[2024-01-12] MEDS: TPN PER PHARMACY IV NR (20:32)
[2024-01-12 20:36] LABS: Sodium 127 mmol/L (136-145)
[2024-01-12 20:37] LABS: Blood Urea Nitrogen 101 mg/dL (9-23); Glucose 607 mg/dL (74-106)
[2024-01-12] MEDS ORDERED: MEROPENEM 1GM IVPB 50 ML IV SCH (22:00)
[2024-01-12] MEDS ORDERED: INSULIN LANTUS (GLARGINE) 1 /0.01ml (100units/ml) SC SCH (22:00)
[2024-01-12] MEDS: metroNIDAZOLE 500MG/100ML 100 ML IV SCH (22:00)
[2024-01-12] MEDS: INSULIN LANTUS (GLARGINE) 1 /0.01ml (100units/ml) SC SCH (22:21)
[2024-01-12] MEDS: MEROPENEM 500MG IVPB 50 ML IV SCH (22:22)
[2024-01-13] VITALS (107 sets, daily range): BP systolic 80–157; BP diastolic 42–91; PULSE 78–118; RESP 12–32; TEMP 98–99.5; O2SAT 96–100
[2024-01-13 04:08] LABS: Hematocrit 32.8 % (36.0-46.0); Hemoglobin 10.9 g/dL (12.2-16.2); Mean Corpuscular Hemoglobin 29.8 pg (28.0-32.0); Mean Corpuscular Volume 90.2 fL (80.0-100.0); Red Blood Cells 3.64 10^6/uL (4.0-5.20); Red Cell Distribution Width 13.3 % (11.8-14.3)
[2024-01-13 04:23] LABS: White Blood Cell 30.1 10^3/uL (4.4-10.8)
[2024-01-13 04:24] LABS: Band Neutrophils % (manual) 0; Basophils % (manual) 0 (0.0-2.0); Blast Cells 0; Eosinophils % (manual) 0 (0-7); Metamyelocytes % 0; Myelocytes % 0; Promyelocytes % 0; Reactive Lymphocytes 0
[2024-01-13 04:34] LABS: Alanine Aminotransferase 13 U/L (7-40); Albumin 4.4 g/dL (3.2-4.8); Alkaline Phosphatase 87 U/L (46-116); Anion Gap 23 (5-15); Aspartate Aminotransferase 8 U/L (13-40); Bilirubin, Total 0.3 mg/dL (0.2-1.0); Calcium 10.3 mg/dL (8.7-10.4); Carbon Dioxide 17 mmol/L (20-30); Chloride 91 mmol/L (98-107); Phosphorus 2.5 mg/dL (2.4-5.1); Potassium 3.5 mmol/L (3.5-5.1); Sodium 131 mmol/L (136-145); Total Protein 7.4 g/dL (5.7-8.2)
[2024-01-13 04:59] LABS: Blood Urea Nitrogen 110 mg/dL (9-23); Glucose 424 mg/dL (74-106)
[2024-01-13 07:42] LABS: Base Excess -8.1 mmol/L (-2.0-2.0)
[2024-01-13 08:22] LABS: Lymphocytes % (manual) 17 (10.0-50.0); Monocytes % (manual) 7 (0-12)
[2024-01-13 08:23] LABS: Platelet Estimate Adequate
[2024-01-13] MEDS: methylPREDNISolone SOD SUCC 40 MG/ML VL IV SCH (10:00)
[2024-01-13] MEDS: FLUCONAZOLE 200MG/100ML 100 ML IV SCH (11:22)
[2024-01-13] MEDS: MIDAZOLAM HCL 2MG/2ML 2ml VIAL (1mg/ml) IV ONE (18:45)
[2024-01-13] MEDS: TPN PER PHARMACY IV NR (22:24)
[2024-01-14] VITALS (85 sets, daily range): BP systolic 89–128; BP diastolic 50–80; PULSE 76–103; RESP 14–27; TEMP 97.7–98.6; O2SAT 98–100
[2024-01-14 05:11] LABS: Hemoglobin 10.3 g/dL (12.2-16.2)
[2024-01-14 05:12] LABS: Mean Corpuscular Hemoglobin 29.6 pg (28.0-32.0); Mean Corpuscular Hgb Conc. 32.2 g/dL (32.0-36.0); Mean Corpuscular Volume 91.9 fL (80.0-100.0); Red Blood Cells 3.48 10^6/uL (4.0-5.20)
[2024-01-14 05:18] LABS: Alanine Aminotransferase 20 U/L (7-40); Anion Gap 22 (5-15); Aspartate Aminotransferase 18 U/L (13-40); BUN/Creatinine Ratio 18.9 (10.0-20.0); Calcium 9.8 mg/dL (8.7-10.4); Carbon Dioxide 16 mmol/L (20-30); Chloride 92 mmol/L (98-107); Magnesium 1.9 mg/dL (1.6-2.6); Potassium 4.1 mmol/L (3.5-5.1); Sodium 130 mmol/L (136-145)
[2024-01-14 05:19] LABS: Bilirubin, Total 0.3 mg/dL (0.2-1.0); Phosphorus 3.1 mg/dL (2.4-5.1); Total Protein 6.7 g/dL (5.7-8.2)
[2024-01-14 05:24] LABS: Alkaline Phosphatase 94 U/L (46-116)
[2024-01-14 05:42] LABS: White Blood Cell 30.7 10^3/uL (4.4-10.8)
[2024-01-14 05:43] LABS: Basophils % (manual) 0 (0.0-2.0); Blast Cells 0; Blood Urea Nitrogen 142 mg/dL (9-23); Eosinophils % (manual) 0 (0-7); Glucose 503 mg/dL (74-106); Metamyelocytes % 0; Myelocytes % 0; Promyelocytes % 0; Reactive Lymphocytes 0
[2024-01-14 08:38] LABS: Base Excess -11.9 mmol/L (-2.0-2.0)
[2024-01-14 09:56] LABS: Band Neutrophils % (manual) 3; Lymphocytes % (manual) 11 (10.0-50.0); Monocytes % (manual) 2 (0-12); Platelet Estimate Adequate
[2024-01-14] MEDS: TPN PER PHARMACY IV NR (22:40)
[2024-01-15] VITALS (79 sets, daily range): BP systolic 76–155; BP diastolic 39–103; PULSE 77–115; RESP 12–33; TEMP 97.7–98.6; O2SAT 99–100
[2024-01-15 02:23] LABS: Hematocrit 26.7 % (36.0-46.0); Hemoglobin 8.9 g/dL (12.2-16.2)
[2024-01-15 03:48] LABS: Hematocrit 26.4 % (36.0-46.0); Hemoglobin 8.7 g/dL (12.2-16.2); Mean Corpuscular Hemoglobin 30.7 pg (28.0-32.0); Mean Corpuscular Hgb Conc. 32.8 g/dL (32.0-36.0); Mean Corpuscular Volume 93.6 fL (80.0-100.0); Red Blood Cells 2.81 10^6/uL (4.0-5.20); White Blood Cell 19.3 10^3/uL (4.4-10.8)
[2024-01-15 04:04] LABS: Alanine Aminotransferase 14 U/L (7-40); Albumin 3.7 g/dL (3.2-4.8); Alkaline Phosphatase 80 U/L (46-116); Anion Gap 23 (5-15); Aspartate Aminotransferase 10 U/L (13-40); Calcium 9.6 mg/dL (8.7-10.4); Carbon Dioxide 13 mmol/L (20-30); Chloride 92 mmol/L (98-107); Magnesium 1.9 mg/dL (1.6-2.6); Potassium 4.7 mmol/L (3.5-5.1); Sodium 128 mmol/L (136-145)
[2024-01-15 04:05] LABS: Bilirubin, Total 0.2 mg/dL (0.2-1.0); Phosphorus 2.5 mg/dL (2.4-5.1); Total Protein 6.2 g/dL (5.7-8.2)
[2024-01-15 04:12] LABS: BUN/Creatinine Ratio 22.2 (10.0-20.0)
[2024-01-15 04:23] LABS: Blood Urea Nitrogen 176 mg/dL (9-23); Glucose 587 mg/dL (74-106)
[2024-01-15 04:27] LABS: Basophils % (manual) 0 (0.0-2.0); Blast Cells 0; Eosinophils % (manual) 0 (0-7); Metamyelocytes % 0; Monocytes % (manual) 0 (0-12); Myelocytes % 0; Promyelocytes % 0; Reactive Lymphocytes 0
[2024-01-15] MEDS ORDERED: DEXTROSE (50%) 50ML SYRG IV PRN (05:15)
[2024-01-15 07:41] LABS: Base Excess -14.1 mmol/L (-2.0-2.0)
[2024-01-15 08:03] LABS: Band Neutrophils % (manual) 3; Lymphocytes % (manual) 13 (10.0-50.0); Platelet Estimate Adequate
[2024-01-15] MEDS: ACCU-CHEK COMFORT CURVE STRIP VI SCH (08:05)
[2024-01-15] MEDS: InsuLIN REG 1unit/0.01ml Soln (100units/ml) SC SCH (08:08)
[2024-01-15] MEDS: SODIUM BICARB 8.4% 50Meq/50ml SYR Vial IV ONE ×2 (09:04)
[2024-01-15] MEDS: HEPARIN 1,000 UNITS/ml 1ML VIAL ONE (10:06)
[2024-01-15] MEDS: MEROPENEM 500MG IVPB 50 ML IV SCH (10:35)
[2024-01-15] MEDS: HEPARIN 1,000 UNITS/ml 1ML VIAL IV ONE (12:00)
[2024-01-15] MEDS: SODIUM CHL 0.9% 1000 ML BAG XX ONE (14:15)
[2024-01-15] MEDS: TPN PER PHARMACY IV NR (21:49)
[2024-01-16] VITALS (73 sets, daily range): BP systolic 90–142; BP diastolic 20–83; PULSE 70–101; RESP 12–24; TEMP 98.1–98.8; O2SAT 98–100
[2024-01-16 04:21] LABS: Hematocrit 24.2 % (36.0-46.0); Hemoglobin 8.3 g/dL (12.2-16.2); Mean Corpuscular Hemoglobin 30.4 pg (28.0-32.0); Mean Corpuscular Hgb Conc. 34.2 g/dL (32.0-36.0); Mean Corpuscular Volume 88.8 fL (80.0-100.0); Red Blood Cells 2.73 10^6/uL (4.0-5.20); Red Cell Distribution Width 13.5 % (11.8-14.3); White Blood Cell 17.3 10^3/uL (4.4-10.8)
[2024-01-16 04:30] LABS: Basophils % (manual) 0 (0.0-2.0); Blast Cells 0; Eosinophils % (manual) 0 (0-7); Metamyelocytes % 0; Myelocytes % 0; Promyelocytes % 0; Reactive Lymphocytes 0
[2024-01-16 04:54] LABS: Alanine Aminotransferase 16 U/L (7-40); Albumin 3.9 g/dL (3.2-4.8); Alkaline Phosphatase 81 U/L (46-116); Anion Gap 15 (5-15); BUN/Creatinine Ratio 22.5 (10.0-20.0); Bilirubin, Total 0.3 mg/dL (0.2-1.0); Calcium 9.3 mg/dL (8.5-10.1); Carbon Dioxide 24 mmol/L (20-30); Chloride 100 mmol/L (98-107); Glucose 171 mg/dL (74-106); Magnesium 2.2 mg/dL (1.6-2.6); Phosphorus 2.2 mg/dL (2.4-5.1); Sodium 139 mmol/L (136-145); Total Protein 6.2 g/dL (5.7-8.2); Triglycerides 438 mg/dL (< 150)
[2024-01-16 04:58] LABS: Blood Urea Nitrogen 101 mg/dL (9-23)
[2024-01-16 05:04] LABS: Aspartate Aminotransferase 21 U/L (13-40)
[2024-01-16 05:44] LABS: Band Neutrophils % (manual) 1; Lymphocytes % (manual) 8 (10.0-50.0); Monocytes % (manual) 5 (0-12); Platelet Estimate Adequate; RBC Morphology Normal
[2024-01-16 08:08] LABS: Base Excess -1.7 mmol/L (-2.0-2.0)
[2024-01-16] MEDS ORDERED: POTASSIUM PHOSPHATE 26.4 MEQ in SODIUM CHL 0.9% 100 ML IV ONE (09:30)
[2024-01-16] MEDS: POTASSIUM CHL 20MEQ/100ML 100 ML IV ONE (12:30)
[2024-01-16] MEDS: POTASSIUM CHL 20MEQ/100ML 100 ML IV SCH (12:54)
[2024-01-16] MEDS: TPN PER PHARMACY IV NR (20:02)
[2024-01-17] VITALS (48 sets, daily range): BP systolic 102–150; BP diastolic 59–80; PULSE 72–110; RESP 10–28; TEMP 98–98.4; O2SAT 97–100
[2024-01-17 04:31] LABS: Hemoglobin 7.7 g/dL (12.2-16.2)
[2024-01-17 04:33] LABS: Mean Corpuscular Hemoglobin 30.5 pg (28.0-32.0); Mean Corpuscular Hgb Conc. 33.2 g/dL (32.0-36.0); Mean Corpuscular Volume 91.7 fL (80.0-100.0); Red Blood Cells 2.51 10^6/uL (4.0-5.20); Red Cell Distribution Width 14.4 % (11.8-14.3)
[2024-01-17 04:34] LABS: Basophils % (manual) 0 (0.0-2.0); Blast Cells 0; Eosinophils % (manual) 0 (0-7); Metamyelocytes % 0; Myelocytes % 0; Promyelocytes % 0; Reactive Lymphocytes 0
[2024-01-17 04:37] LABS: Alanine Aminotransferase 20 U/L (7-40); Alkaline Phosphatase 77 U/L (46-116); Anion Gap 20 (5-15); BUN/Creatinine Ratio 24.1 (10.0-20.0); Calcium 9.4 mg/dL (8.7-10.4); Carbon Dioxide 22 mmol/L (20-30); Chloride 99 mmol/L (98-107); Glucose 188 mg/dL (74-106); Magnesium 2.4 mg/dL (1.6-2.6); Potassium 4.1 mmol/L (3.5-5.1); Sodium 141 mmol/L (136-145)
[2024-01-17 04:38] LABS: Albumin 3.7 g/dL (3.2-4.8); Aspartate Aminotransferase 28 U/L (13-40); Bilirubin, Total 0.3 mg/dL (0.2-1.0)
[2024-01-17 04:56] LABS: Blood Urea Nitrogen 132 mg/dL (9-23)
[2024-01-17 06:52] LABS: Band Neutrophils % (manual) 2; Lymphocytes % (manual) 1 (10.0-50.0); Monocytes % (manual) 3 (0-12); Platelet Estimate Adequate
[2024-01-17 07:31] LABS: Base Excess -3.1 mmol/L (-2.0-2.0)
[2024-01-17] MEDS: MEROPENEM 500MG IVPB 50 ML IV SCH (10:55)
[2024-01-17] MEDS: HEPARIN SODIUM (PORCINE) 5000 UNITS/ML 1ML VIAL ONE (12:10)
[2024-01-17] MEDS: LIDOCAINE W/ EPINEPHRINE 2% INJ 20ML VIAL ONE (12:10)
[2024-01-17] MEDS: IOHEXOL 350 MG/ML 100ML IJ ONE (12:10)
[2024-01-17] MEDS: MIDAZOLAM HCL 2MG/2ML 2ml VIAL (1mg/ml) ONE (12:28)
[2024-01-17] MEDS: fentaNYL CITRATE 100 MCG/2 ML VL ONE (12:28)
[2024-01-17] MEDS: SODIUM CHL 0.9% 1000 ML BAG XX ONE (14:15)
[2024-01-17] MEDS: ALBUMIN 25% 100 ML IV ONE ×2 (15:15→16:53)
[2024-01-17] MEDS ORDERED: TPN PER PHARMACY IV NR (20:00)
[2024-01-17] MEDS ORDERED: EPOETIN ALFA-EPBX 10,000 UNIT/1ML VIAL SC ONE (21:00)
[2024-01-17] MEDS ORDERED: levoFLOXacin 500MG 100 ML IV SCH (21:45)
[2024-01-17] MEDS ORDERED: CALCIUM ACETATE 667 MG CAP NG SCH (22:00)
== END 2024-01-17 19:35 | DRG 870 ==
LOC: ER 13:15 → TELE 17:55 → ICU WEST 18:40
PROVIDERS: ADMIT Internal Medicine; ATTEND Internal Medicine
PROC: 5A1955Z Respiratory Ventilation, Greater than 96 Consecutive Hours (ICD-10-PCS; principal; 2023-12-30)
PROC: 0BH17EZ Insertion of Endotracheal Airway into Trachea, Via Natural or Artificial Opening (ICD-10-PCS; 2023-12-30)
PROC: 05HY33Z Insertion of Infusion Device into Upper Vein, Percutaneous Approach (ICD-10-PCS; 2023-12-30)
PROC: B54MZZA Ultrasonography of Right Upper Extremity Veins, Guidance (ICD-10-PCS; 2023-12-30)
PROC: 02H633Z Insertion of Infusion Device into Right Atrium, Percutaneous Approach (ICD-10-PCS; 2024-01-03)
PROC: B548ZZA Ultrasonography of Superior Vena Cava, Guidance (ICD-10-PCS; 2024-01-03)
PROC: 5A1D70Z Performance of Urinary Filtration, Intermittent, Less than 6 Hours Per Day (ICD-10-PCS; 2024-01-04)
PROC: 5A1D70Z Performance of Urinary Filtration, Intermittent, Less than 6 Hours Per Day (ICD-10-PCS; 2024-01-05)
PROC: 02HV33Z Insertion of Infusion Device into Superior Vena Cava, Percutaneous Approach (ICD-10-PCS; 2024-01-06)
PROC: B548ZZA Ultrasonography of Superior Vena Cava, Guidance (ICD-10-PCS; 2024-01-06)
PROC: 5A1D70Z Performance of Urinary Filtration, Intermittent, Less than 6 Hours Per Day (ICD-10-PCS; 2024-01-06)
PROC: 5A1D70Z Performance of Urinary Filtration, Intermittent, Less than 6 Hours Per Day (ICD-10-PCS; 2024-01-07)
PROC: 5A1D70Z Performance of Urinary Filtration, Intermittent, Less than 6 Hours Per Day (ICD-10-PCS; 2024-01-08)
PROC: 5A1D70Z Performance of Urinary Filtration, Intermittent, Less than 6 Hours Per Day (ICD-10-PCS; 2024-01-10)
PROC: 5A1D70Z Performance of Urinary Filtration, Intermittent, Less than 6 Hours Per Day (ICD-10-PCS; 2024-01-11)
PROC: 5A1D70Z Performance of Urinary Filtration, Intermittent, Less than 6 Hours Per Day (ICD-10-PCS; 2024-01-13)
PROC: 5A1D70Z Performance of Urinary Filtration, Intermittent, Less than 6 Hours Per Day (ICD-10-PCS; 2024-01-15)
PROC: 0BC78ZZ Extirpation of Matter from Left Main Bronchus, Via Natural or Artificial Opening Endoscopic (ICD-10-PCS; 2024-01-15)
PROC: 5A1D70Z Performance of Urinary Filtration, Intermittent, Less than 6 Hours Per Day (ICD-10-PCS; 2024-01-16)
PROC: 0JH63XZ Insertion of Tunneled Vascular Access Device into Chest Subcutaneous Tissue and Fascia, Percutaneous Approach (ICD-10-PCS; 2024-01-17)
PROC: 02H633Z Insertion of Infusion Device into Right Atrium, Percutaneous Approach (ICD-10-PCS; 2024-01-17)
PROC: B5181ZA Fluoroscopy of Superior Vena Cava using Low Osmolar Contrast, Guidance (ICD-10-PCS; 2024-01-17)
PROC: B548ZZA Ultrasonography of Superior Vena Cava, Guidance (ICD-10-PCS; 2024-01-17)
PROC: 5A1D70Z Performance of Urinary Filtration, Intermittent, Less than 6 Hours Per Day (ICD-10-PCS; 2024-01-17)
DX: A41.9 Sepsis, unspecified organism (principal); J15.69 Pneumonia due to other Gram-negative bacteria; E11.10 Type 2 diabetes mellitus with ketoacidosis without coma; R65.21 Severe sepsis with septic shock; G92.8 Other toxic encephalopathy; J96.01 Acute respiratory failure with hypoxia; N17.0 Acute kidney failure with tubular necrosis; R57.1 Hypovolemic shock; E87.0 Hyperosmolality and hypernatremia; K92.2 Gastrointestinal hemorrhage, unspecified; J98.11 Atelectasis; D84.9 Immunodeficiency, unspecified; I82.611 Acute embolism and thrombosis of superficial veins of right upper extremity; E66.9 Obesity, unspecified; E87.6 Hypokalemia; K76.82 Hepatic encephalopathy; E86.0 Dehydration; E11.22 Type 2 diabetes mellitus with diabetic chronic kidney disease; E83.42 Hypomagnesemia; F20.9 Schizophrenia, unspecified; F32.A Depression, unspecified; F17.200 Nicotine dependence, unspecified, uncomplicated; N18.9 Chronic kidney disease, unspecified; E87.70 Fluid overload, unspecified; R31.0 Gross hematuria; D63.1 Anemia in chronic kidney disease; E83.39 Other disorders of phosphorus metabolism; Z83.3 Family history of diabetes mellitus; Z81.8 Family history of other mental and behavioral disorders; Z68.32 Body mass index [BMI] 32.0-32.9, adult
CPT/HCPCS: 31500; 36415; 36558; 36569; 36600; 70450; 70551; 71045; 74018; 74176; 77001; 80048; 80053; 80061; 80074; 80202; 80307; 80320; 80329; 81001; 82010; 82140; 82150; 82270; 82271; 82570; 82728; 82805; 82947; 82962; 83036; 83540; 83550; 83605; 83615; 83690; 83735; 83930; 84100; 84300; 84443; 84478; 84484; 85007; 85014; 85018; 85025; 85027; 85362; 85384; 85610; 85652; 85730; 86703; 86704; 86706; 86708; 86803; 87040; 87045; 87070; 87077; 87081; 87086; 87088; 87186; 87205; 87340; 87427; 87493; 90935; 93306; 93971; 94002; 94003; 94640; 95819; 96361; 96365; 96368; 99152; 99291; C1894; C9113; G0378; J0692; J1450; J1642; J1815; J2001; J2185; J2250; J2543; J2704; J3480; J3490; J7060; J7131; P9047